=== PATIENT | female | born 1985 | race Caucasian/White ===

== ENCOUNTER 2022-12-05 10:24 | Emergency (ER) | payer OTHER ==
[~2022-12-05] VITALS: Ht 180.3 cm; Wt 104.3 kg
[2022-12-05] MEDS ORDERED: ASPI-1165 PO (10:37)
[2022-12-05] MEDS ORDERED: KETOROLAC TROMETHAMINE 30 MG INJ IVP ONE (10:45)
[2022-12-05] MEDS ORDERED: IV NORMAL SALINE 1000 ML BAG IV ONE (10:45)
[2022-12-05] MEDS ORDERED: KETOROLAC TROMETHAMINE 30 MG INJ ONE (10:55)
[2022-12-05 11:54] VITALS: BP 119/82; O2SAT 98
== END 2022-12-05 12:04 | disposition home or self-care (01) ==
LOC: ER 10:27
DX: G43.909 Migraine, unspecified, not intractable, without status migrainosus (principal); Z79.82 Long term (current) use of aspirin
CPT/HCPCS: 99283; 96374; 96361; J1885; J7040; A4663

== ENCOUNTER 2024-01-30 14:47 | Emergency (ER) | payer OTHER ==
[~2024-01-30] VITALS: Ht 180.3 cm; Wt 57.2 kg
[~2024-01-30 14:47] MED LIST: ASPI-1165 PO
[2024-01-30 15:45] LABS: *BILIRUBIN,URIN NEGATIVE (NEGATIVE); *BLOOD, URINE NEGATIVE (NEGATIVE); *CLARITY,URINE CLEAR (CLEAR); *COLOR,URINE YELLOW (YELLOW); *KETONES,URINE NEGATIVE (NEGATIVE); *PROTEIN,URINE NEGATIVE (NEGATIVE); *UROBILINOGEN,URINE 0.2 E.U./dl (NORMAL); LEUKOCYTE ESTERASE ,URINE NEGATIVE (NEGATIVE); NITRITE, URINE NEGATIVE (NEGATIVE); UGLUCOSE NEGATIVE (NEGATIVE)
[2024-01-30 15:46] LABS: *URINE HCG, QUAL NEGATIVE (NEGATIVE)
[2024-01-30 17:01] VITALS: BP 118/76; O2SAT 99
== END 2024-01-30 17:01 | disposition home or self-care (01) ==
LOC: ER 14:47
DX: K59.00 Constipation, unspecified (principal); R10.2 Pelvic and perineal pain; Z79.899 Other long term (current) drug therapy; Z60.2 Problems related to living alone
CPT/HCPCS: 84703; A4606; A4663

== ENCOUNTER 2025-02-12 05:59 | Emergency (ER) | payer OTHER ==
[~2025-02-12] VITALS: Ht 180.3 cm; Wt 101.6 kg
[2025-02-12 06:07] VITALS: BP 125/83
[2025-02-12] MEDS ORDERED: KETOROLAC TROMETHAMINE 30 MG INJ ONE (06:58)
[2025-02-12] MEDS ORDERED: METOCLOPRAMIDE HCL 10 MG/2 ML VIAL ONE (06:59)
[2025-02-12] MEDS ORDERED: diphenhydrAMINE 50 MG/1 ML VIAL ONE (06:59)
[2025-02-12] MEDS: IV NS 1000 ML 1,000 ML IV ONE (07:02)
[2025-02-12] MEDS: KETOROLAC TROMETHAMINE 30 MG INJ IVP ONE (07:02)
[2025-02-12] MEDS: diphenhydrAMINE 50 MG/1 ML VIAL IV ONE (07:02)
[2025-02-12] MEDS: METOCLOPRAMIDE HCL 10 MG/2 ML VIAL IV ONE (07:02)
[2025-02-12 07:22] LABS: PLATELET COUNT (AUTO) 199 K/uL (179-408); RED BLOOD CELL COUNT(AUTO) 4.54 MIL/uL (3.63-4.92); RED CELL DISTRIBUTION WIDTH 13.7 % (12.3-17.7); WHITE BLOOD COUNT (AUTO) 7.0 K/uL (3.8-11.8)
[2025-02-12 07:35] LABS: CREATININE 0.9 mg/dL (0.6-1.3); SODIUM SERUM 144.0 mmol/L (136-145); UREA NITROGEN, BLOOD 19.0 mg/dL (7-18)
[2025-02-12 07:40] LABS: ASPARTATE AMINOTRANSFERASE 16.0 U/L (15-37); TOTAL PROTEIN, SERUM 7.7 g/dL (6.4-8.2)
[2025-02-12] MEDS ORDERED: DIPH25CA83 PO (08:36)
[2025-02-12] MEDS ORDERED: METO-295 PO (08:36)
[2025-02-12] MEDS ORDERED: NAPR-1477 PO (08:36)
[2025-02-12 08:44] VITALS: BP 121/72; O2SAT 95
== END 2025-02-12 08:44 | disposition home or self-care (01) ==
LOC: ER 06:10
DX: G43.909 Migraine, unspecified, not intractable, without status migrainosus (principal)
CPT/HCPCS: 36415; 70450; 85025; A4606; A4663; J1200; J1885; J2765; J7040